=== PATIENT | male | born 2000 | race Caucasian/White ===

== ENCOUNTER 2022-03-09 12:14 | Emergency (ER) | payer SELFPAY ==
[~2022-03-09] VITALS: Ht 175.3 cm; Wt 91.0 kg
[2022-03-09 12:18] VITALS: BP 116/75
[2022-03-09] MEDS ORDERED: LORA-250 MT (12:46)
[2022-03-09] MEDS ORDERED: HYDR50TA55 MT (12:56)
== END 2022-03-09 13:03 | disposition home or self-care (01) ==
LOC: ER 12:22
DX: F41.9 Anxiety disorder, unspecified (principal)
CPT/HCPCS: 99283

== ENCOUNTER 2022-03-13 12:37 | Emergency (ER) | payer OTHER ==
[~2022-03-13] VITALS: Ht 175.3 cm; Wt 89.0 kg
[~2022-03-13 12:37] MED LIST: HYDR50TA55 MT
[2022-03-13 13:03] VITALS: BP 192/130
== END 2022-03-13 16:01 | disposition home or self-care (01) ==
LOC: ER 12:37
DX: F20.9 Schizophrenia, unspecified (principal)
CPT/HCPCS: 99281

== ENCOUNTER 2022-03-15 19:13 | Emergency (ER) | payer OTHER ==
[~2022-03-15] VITALS: Ht 185.4 cm; Wt 95.0 kg
[2022-03-15] MEDS ORDERED: LORAZEPAM 0.5MG TABLET PO ONE (22:15)
[2022-03-15 22:23] VITALS: BP 112/78
== END 2022-03-15 22:23 | disposition home or self-care (01) ==
LOC: ER 19:13
DX: Z76.0 Encounter for issue of repeat prescription (principal)
CPT/HCPCS: 99281

== ENCOUNTER 2022-03-18 04:16 | Emergency (ER) | payer MEDICAID, OTHER ==
[~2022-03-18] VITALS: Ht 185.4 cm; Wt 90.4 kg
[2022-03-18] MEDS ORDERED: LORAZEPAM 1MG TABLET PO ONE (05:45)
[2022-03-18] MEDS ORDERED: LORA-250 PO (07:51)
[2022-03-18] MEDS ORDERED: LORAZEPAM 1MG TABLET PO NR (08:46)
[2022-03-18 08:53] VITALS: BP 151/81
== END 2022-03-18 08:53 | disposition home or self-care (01) ==
LOC: ER 04:16
DX: F20.9 Schizophrenia, unspecified (principal); F06.4 Anxiety disorder due to known physiological condition; F06.0 Psychotic disorder with hallucinations due to known physiological condition; R03.0 Elevated blood-pressure reading, without diagnosis of hypertension
CPT/HCPCS: 99281

== ENCOUNTER 2022-03-20 11:50 | Emergency (ER) | payer MEDICAID, OTHER ==
[~2022-03-20] VITALS: Ht 185.4 cm; Wt 89.0 kg
[~2022-03-20 11:50] MED LIST changes: +LORA-250 PO
[2022-03-20 12:07] VITALS: BP 134/80
[2022-03-20] MEDS ORDERED: LORAZEPAM 0.5MG TABLET PO ONE (14:30)
== END 2022-03-20 14:38 | disposition home or self-care (01) ==
LOC: ER 11:50
DX: F41.1 Generalized anxiety disorder (principal); F20.9 Schizophrenia, unspecified; F31.9 Bipolar disorder, unspecified; R03.0 Elevated blood-pressure reading, without diagnosis of hypertension
CPT/HCPCS: 99283

== ENCOUNTER 2022-03-21 20:14 | Emergency (ER) | payer OTHER | END 2022-03-21 21:30 | disposition left against medical advice (07) | LOC: ER 20:14 | DX: Z53.21 Procedure and treatment not carried out due to patient leaving prior to being seen by health care provider (principal) ==